=== PATIENT | female | born 1980 | race Caucasian/White ===

== ENCOUNTER 2017-04-05 14:45 | Emergency (ER) | payer OTHER ==
[~2017-04-05] VITALS: Ht 170.2 cm; Wt 73.9 kg
[2017-04-05 15:41] LABS: HEMATOCRIT 39.6 % (36.0-46.0); MCH 30.4 PG (29.0-34.0); MCHC 33.1 G/DL (30.0-36.0); MCV 91.9 FL (83-99); MEAN PLAT.VOLUME 9.9 uM^3 (9.5-12.4); PLATELET COUNT 265 K/uL (156-360); RBC DIS.WIDTH-CV 11.8 % (11.8-14.6); RBC DIS.WIDTH-SD 39.6 % (39-53); RED BLOOD COUNT 4.31 M/uL (3.80-5.20); WHITE BLOOD COUNT 6.2 K/uL (4.1-10.2)
[2017-04-05 15:44] LABS: ADD MIUA? NO; BILIRUBIN NEGATIVE; BLOOD NEGATIVE; COLOR YELLOW ((YELLOW)); GLUCOSE (STRIP) NEGATIVE; KETONES NEGATIVE; LEUKOCYTES NEGATIVE; NITRITE NEGATIVE; PROTEIN (STRIP) NEGATIVE; SPECIFIC GRAVITY 1.009 (1.000-1.030); UCUL ADDED? NO; UROBILINOGEN 0.2 MG/DL (0.2-1.0)
[2017-04-05 15:49] LABS: CHLORIDE 102 mEq/L (99-109)
[2017-04-05 15:50] LABS: POTASSIUM 4.1 mEq/L (3.7-5.4); SODIUM 138 mEq/L (136-147)
[2017-04-05 15:53] LABS: ANION GAP 10 MEQ/L (2-14); GLUCOSE 89 mg/dL (70-99)
[2017-04-05 15:54] LABS: TOTAL BILIRUBIN 0.2 mg/dL (0.0-1.0)
[2017-04-05 15:55] LABS: ALKALINE PHOSPHATASE 64 IU/L (3-129)
[2017-04-05 15:57] LABS: UREA NITROGEN (BUN) 9 mg/dL (9-23)
[2017-04-05 15:58] LABS: GFR ESTIMATE (CALCULATED) > 59 mL/min/
[2017-04-05 16:05] LABS: LIPASE 16 U/L (1.0-51.0)
[2017-04-05 16:06] LABS: QUANTITATIVE HCG < 4.0 MIU/ML
[2017-04-05] MEDS ORDERED: ZOFRAN ODT4 MG PO (17:50)
[2017-04-05] MEDS ORDERED: BENTYL10 MG PO (17:54)
[2017-04-05 17:59] VITALS: BP 104/64
== END 2017-04-05 18:08 | disposition home or self-care (01) ==
LOC: EME 14:45
DX: R10.9 Unspecified abdominal pain (principal); R11.0 Nausea; F17.200 Nicotine dependence, unspecified, uncomplicated
CPT/HCPCS: 74177; 80053; 81003; 83690; 84702; 85027; 99281; 99285; J1885; J2270; J2405; J7030

== ENCOUNTER 2017-08-01 10:16 | Day surgery (SDC) | payer OTHER ==
[~2017-08-01] VITALS: Ht 170.2 cm; Wt 74.8 kg
[~2017-08-01 10:16] MED LIST: BENTYL10 MG PO; MUCINEX1200 MG PO; PRENATAL TABLE1 EAC3 PO; ZOFRAN ODT4 MG PO
[2017-08-01 10:37] VITALS: BP 134/78
[2017-08-01] MEDS ORDERED: ENDOCET 5-3251 EACH PO (11:34)
[2017-08-01] MEDS ORDERED: MOTRIN800 MG PO (11:34)
[2017-08-01 16:10] VITALS: BP 117/71
== END 2017-08-01 17:40 | disposition home or self-care (01) ==
LOC: SDC 10:16
PROC: 10D17ZZ Extraction of Products of Conception, Retained, Via Natural or Artificial Opening (ICD-10-PCS; principal; 2017-08-01)
DX: O02.1 Missed abortion (principal); Z3A.01 Less than 8 weeks gestation of pregnancy; F17.200 Nicotine dependence, unspecified, uncomplicated
CPT/HCPCS: 88305; J1100; J1170; J1885; J2210; J2250; J2405; J3010

== ENCOUNTER 2017-08-19 14:26 | Emergency (ER) | payer OTHER ==
[~2017-08-19] VITALS: Ht 170.2 cm; Wt 77.5 kg
[~2017-08-19 14:26] MED LIST changes: +ENDOCET 5-3251 EACH PO; +MOTRIN800 MG PO
[2017-08-19 15:32] LABS: HEMATOCRIT 37.3 % (36.0-46.0); MCHC 34.9 G/DL (30.0-36.0); MCV 91.9 FL (83-99); MEAN PLAT.VOLUME 9.3 uM^3 (9.5-12.4); PLATELET COUNT 217 K/uL (156-360); RBC DIS.WIDTH-CV 12.5 % (11.8-14.6); RBC DIS.WIDTH-SD 42.5 % (39-53); RED BLOOD COUNT 4.06 M/uL (3.80-5.20); WHITE BLOOD COUNT 7.1 K/uL (4.1-10.2)
[2017-08-19 15:46] LABS: CHLORIDE 108 mEq/L (99-109); POTASSIUM 4.1 mEq/L (3.7-5.4); SODIUM 137 mEq/L (136-147)
[2017-08-19 15:49] LABS: GLUCOSE 76 mg/dL (70-99)
[2017-08-19 15:50] LABS: ANION GAP 9 MEQ/L (2-14)
[2017-08-19 15:51] LABS: TOTAL BILIRUBIN 0.2 mg/dL (0.0-1.0)
[2017-08-19 15:52] LABS: ALKALINE PHOSPHATASE 88 IU/L (3-129); GFR ESTIMATE (CALCULATED) > 59 mL/min/
[2017-08-19 15:53] LABS: UREA NITROGEN (BUN) 10 mg/dL (9-23)
[2017-08-19 16:01] LABS: QUANTITATIVE HCG 14580.9 MIU/ML
[2017-08-19 18:02] LABS: ADD MIUA? YES; BILIRUBIN NEGATIVE; BLOOD LARGE; COLOR YELLOW ((YELLOW)); GLUCOSE (STRIP) NEGATIVE; KETONES NEGATIVE; LEUKOCYTES NEGATIVE; NITRITE NEGATIVE; PROTEIN (STRIP) NEGATIVE; SPECIFIC GRAVITY 1.009 (1.000-1.030); UROBILINOGEN 0.2 MG/DL (0.2-1.0)
[2017-08-19 18:04] LABS: BACTERIA RARE /HPF; EPITHELIAL CELLS RARE /HPF; MUCUS TRACE /LPF; RED BLOOD CELLS 0-5 /HPF (0-5); UCUL ADDED? NO; WHITE BLOOD CELLS 0-5 /HPF (0-5)
[2017-08-19] MEDS ORDERED: MOTRIN600 MG PO (21:05)
[2017-08-19] MEDS ORDERED: NORCO 5/3251 TABLET PO (21:05)
[2017-08-19 21:19] VITALS: BP 134/87
== END 2017-08-19 21:20 | disposition home or self-care (01) ==
LOC: EME 14:26
DX: N93.9 Abnormal uterine and vaginal bleeding, unspecified (principal); Z98.890 Other specified postprocedural states; F32.9 Major depressive disorder, single episode, unspecified; F41.9 Anxiety disorder, unspecified; F17.200 Nicotine dependence, unspecified, uncomplicated
CPT/HCPCS: 76856; 80053; 81003; 84702; 85027; 99281; 99283

== ENCOUNTER 2017-08-20 22:27 | Day surgery (SDC) | payer OTHER ==
[~2017-08-20] VITALS: Ht 170.2 cm; Wt 78.5 kg
[~2017-08-20 22:27] MED LIST changes: +MOTRIN600 MG PO; +NORCO 5/3251 TABLET PO
[2017-08-20 22:59] LABS: EOSINOPHIL (%) 1.3 % (0-5); EOSINOPHIL COUNT 0.1 K/uL (0-0.3); HEMATOCRIT 35.2 % (36.0-46.0); IMMATURE GRANULOCYTE (%) 0.3 % (0.0-0.7); INSTRUMENT ABS NEUTROPHIL CT 6.1 K/uL; LYMPHOCYTE COUNT 1.6 K/uL (1.0-2.8); MCH 32.6 PG (29.0-34.0); MCHC 35.2 G/DL (30.0-36.0); MCV 92.6 FL (83-99); MEAN PLAT.VOLUME 9.4 uM^3 (9.5-12.4); MONOCYTE (%) 8.9 % (3-12); MONOCYTE COUNT 0.8 K/uL (0-0.8); NEUTROPHIL (%) 70.8 % (45-76); NEUTROPHIL COUNT 6.1 K/uL (1.8-6.4); PLATELET COUNT 234 K/uL (156-360); RBC DIS.WIDTH-CV 12.6 % (11.8-14.6); RBC DIS.WIDTH-SD 42.5 % (39-53); WHITE BLOOD COUNT 8.7 K/uL (4.1-10.2)
[2017-08-20 23:14] LABS: CHLORIDE 107 mEq/L (99-109); POTASSIUM 4.1 mEq/L (3.7-5.4); SODIUM 142 mEq/L (136-147)
[2017-08-20 23:17] LABS: GLUCOSE 88 mg/dL (70-99)
[2017-08-20 23:18] LABS: ANION GAP 11 MEQ/L (2-14)
[2017-08-20 23:19] LABS: TOTAL BILIRUBIN 0.2 mg/dL (0.0-1.0)
[2017-08-20 23:20] LABS: ALKALINE PHOSPHATASE 94 IU/L (3-129); GFR ESTIMATE (CALCULATED) > 59 mL/min/
[2017-08-20 23:21] LABS: UREA NITROGEN (BUN) 8 mg/dL (9-23)
[2017-08-20 23:29] LABS: QUANTITATIVE HCG 8769.9 MIU/ML
[2017-08-21] MEDS ORDERED: MOTRIN800 MG PO (00:39)
[2017-08-21] MEDS ORDERED: PERCOCET 5/31 TABLET PO (00:39)
[2017-08-21 02:04] VITALS: BP 106/53
[2017-08-21 03:38] VITALS: BP 108/60
[2017-08-21 03:59] LABS: EOSINOPHIL COUNT 0.1 K/uL (0-0.3); HEMATOCRIT 29.1 % (36.0-46.0); IMMATURE GRANULOCYTE (%) 0.3 % (0.0-0.7); LYMPHOCYTE COUNT 1.4 K/uL (1.0-2.8); MCH 31.8 PG (29.0-34.0); MCV 93.6 FL (83-99); MEAN PLAT.VOLUME 9.3 uM^3 (9.5-12.4); MONOCYTE (%) 9.9 % (3-12); MONOCYTE COUNT 0.6 K/uL (0-0.8); NEUTROPHIL (%) 65.3 % (45-76); PLATELET COUNT 181 K/uL (156-360); RBC DIS.WIDTH-CV 12.7 % (11.8-14.6); RBC DIS.WIDTH-SD 43.8 % (39-53); RED BLOOD COUNT 3.11 M/uL (3.80-5.20); WHITE BLOOD COUNT 6.2 K/uL (4.1-10.2)
[2017-08-21 07:18] VITALS: BP 106/50
[2017-08-21 09:21] VITALS: BP 106/50
== END 2017-08-21 11:15 | disposition home or self-care (01) ==
LOC: EME 22:27 → SDC 08-21 00:04 → 2SOUTH 08-21 00:20 → ENRESERV 08-21 00:39 → 2EASTP 08-21 01:45
PROVIDERS: Emergency Medicine; Obstetrics & Gynecology
PROC: 10D17ZZ Extraction of Products of Conception, Retained, Via Natural or Artificial Opening (ICD-10-PCS; principal; 2017-08-21)
DX: O03.1 Delayed or excessive hemorrhage following incomplete spontaneous abortion (principal); Z3A.14 14 weeks gestation of pregnancy; F17.200 Nicotine dependence, unspecified, uncomplicated; F41.9 Anxiety disorder, unspecified
CPT/HCPCS: 76801; 80053; 81003; 84702; 85025; 86850; 86900; 86901; 86920; 88305; 99281; 99284; G0378; J0330; J0690; J1170; J1885; J2210; J2270; J2405; J3010; J7030; J7120